=== PATIENT | female | born 1960 | race Caucasian/White ===

== ENCOUNTER 2022-08-31 22:23 | Emergency (ER) | payer OTHER, SELFPAY ==
[2022-08-31 22:27] VITALS: BP 147/81; PULSE 81; RESP 16; TEMP 37; O2SAT 98
--- NOTE | 2022-08-31 22:30 | RT.EKG_ITS ---
APPROVED REPORT Exam: Resting ECG Reason for Exam: abd pain Patient Location: E HR:79 bpm ECG Measurements Heart Rate 79 AXIS CO 111 P 35 QRSd 87 QRS 18 QT 382 T 26 QTc 437 Conclusion Sinus rhythm...normal P axis, V-rate 60- 99
--- NOTE | 2022-08-31 22:45 | DI.CT_ITS ---
Exam(s) CT ABDOMEN PELVIS W EXAM: CT ABDOMEN PELVIS W CLINICAL HISTORY: upper abdominal pain TECHNIQUE: Imaging Protocol: Axial computed tomography images with coronal and sagittal reformatted images were created and reviewed CONTRAST MATERIAL: Intravenous: Omnipaque 350 Contrast volume:100 mL Oral: No COMPARISON: No exams were available for comparison FINDINGS: ABDOMEN: Lung Bases: Normal where visualized. Liver: Normal density. There are 2 tiny hypodensities in the liver. They are too small for further c haracterization but may reflect small cysts. No follow-up is recommended. Portal, Superior Mesenteric, and Splenic Veins: Unremarkable. Gallbladder and Biliary Tract: No radiodense calculus or dilation. Pancreas: Normal density, no abnormal calcifications or inflammatory process. Spleen: Normal. Adrenals: No masses seen. Kidneys: Normal size, contour and axis. No radiodense stones or obstructive uropathy. No masses seen. Abdominal Aorta: Abdominal portion non-dilated. Mild atherosclerosis. Bowel: There is no evidence of bowel obstruction. There is mild wall thickening and proximal jejunal loops. There are diverticula scattered in the colon but no evidence of acute diverticulitis. There is no evidence of appendicitis. Peritoneal Cavity: No ascites, collection or mesenteric inflammatory response. No free air. Lymph Nodes: Within normal limits. Bones: Within normal limits for the patient's age. Soft Tissues: Unremarkable. PELVIS: Bladder: Symmetric distention, no gross wall thickening. Reproductive Organs: Status post hysterectomy. Lymph Nodes: Within normal limits. Bones: Within normal limits for the patient's age. IMPRESSION: Findings suggestive of small-bowel enteritis. RADIATION DOSE DELIVERED: 891.08mGy.cm Total DLP DATA REPOSITORY: All CT scans at this facility are submitted to the National Radiology Data Registry (NRDR) Dose Index Registry (DIR) with the [employer] ([employer]). RADIATION OPTIMIZATION: All CT scans at this facility use at least one of these dose optimization te chniques: automated exposure control; mA and/or kV adjustment per patient size (includes targeted exa ms where dose is matched to clinical indication); or iterative reconstruction.
--- NOTE | 2022-08-31 22:57 | ED.GENADUL_ITS ---
Discharge Plan Disposition Patient Disposition: Home Condition: Stable Discharge Details Clinical Impression: Epigastric abdominal pain ED Provider: Rafael Nichols Discharge Instructions Additional Instructions: your blood work and cat scan did not show concerning findings at this time. You did have evidence of inflammation of the stomach and first part of your small bowel which is likely the cause of your symptoms. You can take tums and daily prilosec if you continue to have symptoms follow up with your primary care provider this week if symptoms continue if you feel more ill, have severe worsening pain or vomiting return to the emergency department Medical Decision Making 62 yo female who states she's had a prior hysterectomy and appendectomy, comes in with epigastric discomfort. She is visiting from [place] and around 7pm after she ate and had one cocktail she developed epigastric discomfort. She denies vomiting, fevers, chest pain, dyspnea. She does state it radiates to the back. She took tums and ibuprofen and states pain is now improving. She arrives stable speaking clearly in no distress. She has a soft nondistended abdomen, is tender in the ruq and epigastric area without guarding or rebound. No lower abdominal tenderness. Could be gastritis but given location will proceed with cbc, cmp, lipase and ct abdomen/pelvis to evaluate for possible cholecystitis and less likely sbo labs and imaging unremarkable other than enteritis, patient stable and has minimal epigastric tenderness with deep palpation. Given reassuring workup feel she is stable for d/c, advised to f/u with pcp, return precautions given Differential Diagnosis Differential Diagnosis: pancreatitis, gastritis, cholecystitis Imaging Data Radiologic Study: Attestation: I personally reviewed and interpreted this imaging study as follows: Imaging: CT Scan Radiologist's impression: IMPRESSION: Small bowel enteritis process is suggested. Diffuse thickening of the jejunal wall. No mechanical obstruction. Lab Data Lab results reviewed: Yes I reviewed the patient's lab results. ECG Data Attestation: I personally reviewed and interpreted this ECG (s) as follows: Prior ECG tracings: not available for review Interpretation: sinus rate of 79, pr 111, no st t wave ischemic findings HPI General Mode of arrival: ambulatory . Date/Time Provider Initiated Documentation: 08/31/22 22:24 . Limitations to Documentation: no limitations . Information obtained by: patient . History of Present Illness 62 year old F presents to the emergency department with the chief complaint of epigastric pain, described as moderate, Quality is described as stabbing and aching, and is localized to the abdomen. Patient reports radiation to back. Patient started experiencing this hour(s) (3) and it has been other (improving). Patient notes denies fever/chills and nausea/vomiting. Patient did receive the following treatments prior to arrival, NSAID General Stated Complaint: Abd Prob UMESH: 3 Review of Systems All systems reviewed & are unremarkable except as noted in HPI and below Constitutional Constitutional: Denies chills, Denies fever(s) and Denies weakness Cardiovascular Cardiovascular: Denies chest pain and Denies dyspnea Respiratory Respiratory: Denies cough and Denies dyspnea Gastrointestinal Gastrointestinal: Reports abdominal pain, Denies nausea and Denies vomiting Musculoskeletal Musculoskeletal: Denies joint swelling Neurologic Neurologic: Denies weakness REPLACED BY [facility] Medical History (Updated 09/01/22 @ 00:07 by LEYDI MCCLAIN) Pancreatitis Surgical History (Updated 08/31/22 @ 23:16 by Leigh Reddy RN) H/O: hysterectomy History of appendectomy Social History Smoking/Tobacco Use Status: Never Smoking risk assessment performed?: Yes Alcohol Intake: current Alcohol Intake frequency: a few times a month Substance use type: does not use Do you feel safe at home: Yes Do you feel safe in your relationship?: Yes Additional Social history: From Road [place] Exam Const General: no acute distress Orientation: alert [facility] Head: normal to inspection Ears: external ears normal General nose exam: external nose normal Mouth: moist mucous membranes Eyes General: appearance normal, both eyes and all related structures Neck Neck: normal visual inspection Resp Effort & Inspection: normal respiratory effort and able to speak in complete sentences Auscultation: clear to auscultation bilaterally Cardio Jugular venous pressure: no JVD Rate: regular rate Heart Sounds: no murmurs GI Palpation: soft and tender Skin General skin exam: no rashes or lesions noted Neuro General: patient alert and patient oriented x3 Extrem General: normal to inspection Psych Mental Status: mental status grossly normal Course Vital Signs Vital signs: Vital Signs Temperature 37.0 C 08/31/22 22:27 Pulse 81 08/31/22 22:27 Respiratory Rate 16 08/31/22 22:27 Blood Pressure 147/81 H 08/31/22 22:27 Pulse Oximetry 98 08/31/22 22:27 Temperature 37.0 C 08/31/22 22:27 Temperature Source Oral 08/31/22 22:27 Pulse 81 08/31/22 22:27 Respiratory Rate 16 08/31/22 22:27 Blood Pressure 147/81 H 08/31/22 22:27 Blood Pressure Position Sitting 08/31/22 22:27 Pulse Oximetry 98 08/31/22 22:27 Oxygen Delivery Method Room Air 08/31/22 22:27 Oxygen Flow Rate 0 08/31/22 22:27 Pain Level 7 08/31/22 22:27
[2022-08-31 22:58] LABS: Abs Immature Grans 0.03 10^3/uL (0.0-0.06); Absolute Basophil Count 0.02 10^3/uL (0.0-0.2); Absolute Eosinophil Count 0.03 10^3/uL (0.0-0.7); Absolute Lymphocyte Count 0.47 10^3/uL (1.2-3.4); Absolute Monocyte Count 0.58 10^3/uL (0.1-0.8); Absolute Neutrophil Count 4.83 10^3/uL (1.2-6.7); Basophils % 0.3; Eosinophils % 0.5; HCT 41.8 % (36.0-46.0); Immature Grans % 0.5; Lymphocytes % 7.9; MCH 31.7 pg (27.0-33.0); MCHC 33.5 % (32.0-36.0); MCV 95 fL (80-95); MPV 10.4 fL (8.0-11.0); Monocytes % 9.7; Neutrophils % 81.1; Platelet Count 146 10^3/uL (130-400); RBC 4.41 10^6/uL (3.93-5.22); RDW 12.3 % (11.7-14.6); RDW-SD 43.2 fL; WBC 5.96 10^3/uL (4.4-10.8)
[2022-08-31 23:12] LABS: PTT Activated 27.3 sec (21.5-31.9); Prothrombin Time 9.7 sec (9.3-11.0)
[2022-08-31 23:20] LABS: Troponin I < 50 ng/L (<or=60)
[2022-08-31 23:23] LABS: ALT 24 U/L (14-59); AST 27 U/L (15-37); Albumin 3.4 g/dL (3.4-5.0); Alkaline Phosphatase 77 U/L (46-116); BUN 16 mg/dL (7-18); Bilirubin, Total 0.3 mg/dL (0.2-1.0); Calcium 8.7 mg/dL (8.5-10.1); Chloride 105 mmol/L (98-107); Estimated GFR 64.09 (mL/min/1.73m2); Glucose 129 mg/dL (74-106); Lipase 34 U/L (16-77); Magnesium 2.1 mg/dL (1.8-2.4); Potassium 4.6 mmol/L (3.5-5.1); Sodium 138 mmol/L (136-145); TSH (W/Ref FT4) 3.38 uIU/mL (0.36-3.74); Total Protein 6.7 g/dL (6.4-8.2)
[2022-08-31] MEDS: Omnipaque 350 MG/ML 100 ML BTL IJ (23:29)
[2022-08-31] MEDS: Normal Saline - Diluent 50 ML VIAL IJ (23:29)
--- NOTE | 2022-09-01 00:19 | DI.VRAD_ITS ---
PROCEDURE INFORMATION: Exam: CT Abdomen And Pelvis With Contrast Exam date and time: 08/31/2022 11:13 PM Age: 62 years old Clinical indication: Other: Upper abdominal pain TECHNIQUE: Imaging protocol: Computed tomography of the abdomen and pelvis with contrast. Contrast material: OMNIPAQUE 350; Contrast volume: 100 ml; Contrast route: INTRAVENOUS (IV); COMPARISON: No relevant prior studies available. FINDINGS: Lungs: Lung bases are clear. Pleural spaces: No pleural effusion. Heart: Normal heart size. No pericardial effusion. No coronary artery atherosclerotic calcium is visible. Liver: Liver is unremarkable in size, contour, and attenuation. There is a inferior right hepatic 4 mm low-attenuation focus most consistent with a benign cyst. Gallbladder and bile ducts: The gallbladder is normal in size and shape. No stones or inflammatory changes. Pancreas: The pancreas is normal in contour and attenuation. Spleen: The spleen is normal in size, contour and attenuation. Adrenal glands: The adrenal glands are normal in size and contour bilaterally. Kidneys and ureters: The kidneys bilaterally are unremarkable. Normal attenutation. No hydronephrosis. No calculi. Stomach and bowel: Gastric morphology is unremarkable. No edema. No gastric outlet obstruction. Small bowel loops with wall thickening in the proximal jejunum. Bowel wall thickness measuring up to 10 mm. These findings suggest an enteritis. There is no mechanical obstruction. No pneumatosis intestinalis. Large bowel is unremarkable in course and caliber. No edema. No obstruction. Appendix: Surgical clips adjacent to the cecum suggesting a previous appendectomy. Recommend clinical correlation. Intraperitoneal space: No free fluid. No free air. Vasculature: Unremarkable. No abdominal aortic aneurysm. Lymph nodes: Unremarkable. No enlarged lymph nodes. Urinary bladder: Urinary bladder is unremarkable in appearance. No wall thickening. No intravesicular calculi. No intravesicular gas. Reproductive: Previous hysterectomy. Bones/joints: Skeletal structures are unremarkable. No acute disease. Soft tissues: Unremarkable. IMPRESSION: Small bowel enteritis process is suggested. Diffuse thickening of the jejunal wall. No mechanical obstruction. Dictated and Authenticated by: Crow Albarado MD. Ordering:STEVE Hall MD
[2022-09-01 00:55] VITALS: BP 132/71; PULSE 71; RESP 16; TEMP 36.7; O2SAT 98
== END 2022-09-01 00:39 | disposition home or self-care (01) ==
LOC: ER 09-01 00:40
PROVIDERS: Emergency Provider Emergency Medicine
DX: R10.13 Epigastric pain (principal)
CPT/HCPCS: 36415; 80053; 83690; 93005; 99285; 74177; 83735; 84443; 84484; 85025; 85610; 85730; 93010; 99283; J3490